=== PATIENT | male | born 1955 | race Caucasian/White ===

== ENCOUNTER 2017-11-30 18:13 | Emergency (ER) | payer OTHER ==
[2017-11-30] MEDS ORDERED: Adacel (T-DAP) 0.5 ML VIAL ONE (18:26)
[2017-11-30] MEDS ORDERED: Lidocaine 1% 20 ML MDV ONE (18:26)
[2017-11-30] MEDS ORDERED: Bacitracin Zinc 1 Packet ONE (19:06)
== END 2017-11-30 19:23 | disposition home or self-care (01) ==
LOC: NAV ERS 18:13
DX: S81.812A Laceration without foreign body, left lower leg, initial encounter (principal); I48.91 Unspecified atrial fibrillation; I10 Essential (primary) hypertension; Z79.01 Long term (current) use of anticoagulants; Z79.899 Other long term (current) drug therapy; W29.3XXA Contact with powered garden and outdoor hand tools and machinery, initial encounter
CPT/HCPCS: 12005; 90471; 90715; J2001